=== PATIENT | male | born 1950 | race Caucasian/White ===

== ENCOUNTER 2024-01-07 09:30 | Inpatient (IN) | payer MEDICAID ==
[~2024-01-07] VITALS: Ht 162.6 cm; Wt 106.4 kg
[2024-01-07 10:11] LABS: BASOPHILS % 0.6 % (0.0-2.0); EOSINOPHILS % 2.9 % (0.0-5.0); HEMATOCRIT. 43.9 % (42.0-52.0); HEMOGLOBIN. 14.9 g/dL (14.0-18.0); LYMPHOCYTES % 15.3 % (20.0-50.0); MEAN CORPUSCULAR HEMOGLOBIN 30.5 pg (28.0-32.0); MEAN CORPUSCULAR VOLUME 89.8 fL (80.0-94.0); MEAN PLATELET VOLUME 9.3 fl (7.4-10.4); MONOCYTES % 10.2 % (2.0-8.0); PLATELET 329 x1000/uL (130-400); RED BLOOD CELL COUNT 4.89 mill/uL (4.7-6.1); RED CELL DISTRIBUTION WIDTH 16.3 % (11.6-14.6); WHITE BLOOD COUNT 9.4 x1000/uL (4.5-11.0)
[2024-01-07 10:16] LABS: INR 0.9; PARTIAL THROMBOPLASTIN TIME 25.9 sec (23.4-31.0); PROTHROMBIN TIME 10.5 sec (9.6-11.0)
[2024-01-07 10:26] LABS: ALANINE AMINOTRANSFERASE 26 IU/L (10-49); ALBUMIN 3.7 g/dL (3.2-4.8); ASPARTATE AMINOTRANSFERASE 59 IU/L (<34); BILIRUBIN TOTAL 1.4 mg/dL (0.1-1.0); CALCIUM 8.2 mg/dL (8.7-10.4); CARBON DIOXIDE 24 mEq/L (21-32); CHLORIDE 109 mEq/L (98-107); GLUCOSE 106 mg/dL (70-105); POTASSIUM 3.9 mEq/L (3.5-5.1); PROTEIN TOTAL 6.2 g/dL (6.0-8.3); SODIUM 139 mEq/L (136-145); UREA NITROGEN BLOOD 14 mg/dL (9-23)
[2024-01-07 10:31] LABS: TROPONIN I HIGH SENSITIVITY 114 ng/L (3.0-53)
[2024-01-07 11:29] LABS: LACTIC ACID 2.1 mmol/L (0.4-2.0)
[2024-01-07] MEDS: MORPHINE SULFATE 4 MG/ML INJ (FOR IV/IM USE) IV ONE (12:11)
[2024-01-07] MEDS ORDERED: CLONIDINE 0.1MG TABLET PO PRN (16:00)
[2024-01-07] MEDS ORDERED: ACETAMINOPHEN 325MG TABLET PO PRN ×2 (16:00)
[2024-01-07 19:45] VITALS: BP 139/102; PULSE 95; RESP 25; TEMP 98
[2024-01-07 22:19] LABS: HEMATOCRIT 43.7 % (42.0-52.0); HEMOGLOBIN 14.9 g/dL (14.0-18.0)
[2024-01-07 22:39] LABS: CREATINE KINASE 381 IU/L (46-171)
[2024-01-07 23:03] LABS: TROPONIN I HIGH SENSITIVITY 97 ng/L (3.0-53)
[2024-01-07] MEDS ORDERED: KETOROLAC 15MG/ML VIAL IV PRN (23:15)
[2024-01-07] MEDS: IOHEXOL-350 100 ML BOTTLE ONE (23:51)
[2024-01-08] VITALS (8 sets, daily range): BP systolic 116–152; BP diastolic 74–89; PULSE 70–91; RESP 16–24; TEMP 97.7–98.3
[2024-01-08] MEDS ORDERED: DEXTROSE 50% WATER 50ML SYRINGE IV PRN
[2024-01-08] MEDS: POLYETHYLENE GLYCOL 3350 (17GM) 1 DOSE PACK PO SCH (00:21)
[2024-01-08 03:02] LABS: ALANINE AMINOTRANSFERASE 24 IU/L (10-49); ALBUMIN 3.7 g/dL (3.2-4.8); ASPARTATE AMINOTRANSFERASE 52 IU/L (<34); BILIRUBIN TOTAL 1.4 mg/dL (0.1-1.0); CALCIUM 8.7 mg/dL (8.7-10.4); CARBON DIOXIDE 25 mEq/L (21-32); CHLORIDE 108 mEq/L (98-107); CHOLESTEROL 109 mg/dL (<200); GLUCOSE 70 mg/dL (70-105); HDL CHOLESTEROL 31 mg/dL (>55); LDL CHOLESTEROL 60 mg/dL (5-100); POTASSIUM 4.2 mEq/L (3.5-5.1); PROTEIN TOTAL 6.6 g/dL (6.0-8.3); SODIUM 140 mEq/L (136-145); T4 FREE 1.39 ng/dL (0.89-1.76); THYROID STIMULATING HORMONE 0.52 uIU/mL (0.55-4.78); TRIGLYCERIDE 119 mg/dL (0-150); UREA NITROGEN BLOOD 17 mg/dL (9-23)
[2024-01-08 03:31] LABS: TROPONIN I HIGH SENSITIVITY 98 ng/L (3.0-53)
[2024-01-08 05:11] LABS: *AMPHETAMINES SCREEN URINE NEGATIVE (NEGATIVE); *BARBITURATES SCREEN URINE NEGATIVE (NEGATIVE); *BENZODIAZEPINES SCREEN URINE NEGATIVE (NEGATIVE); *COCAINE SCREEN URINE NEGATIVE (NEGATIVE); CANNABINOID URINE SCREEN NEGATIVE (NEGATIVE); ECSTASY MDMA SCREEN URINE NEGATIVE (NEGATIVE); METHADONE URINE SCREEN Neg (NEGATIVE); OPIATES URINE SCREEN PRESUMPTIVE POSITIVE (NEGATIVE); PHENCYCLIDINE URINE SCREEN NEGATIVE (NEGATIVE)
[2024-01-08 05:57] LABS: CLARITY URINE CLEAR (CLEAR); COLOR URINE DARK YELLOW (YELLOW); GLUCOSE URINE NEGATIVE (NEGATIVE); KETONES URINE NEGATIVE (NEGATIVE); LEUKOCYTE ESTERASE URINE NEGATIVE (NEGATIVE); NITRITE URINE NEGATIVE (NEGATIVE); OCCULT BLOOD URINE NEGATIVE (NEGATIVE); PROTEIN URINE TRACE (NEGATIVE); SPECIFIC GRAVITY URINE 1.064 (1.005-1.030)
[2024-01-08 06:09] LABS: BACTERIA URINE NONE SEEN; RBC URINE 0-2 /hpf (0-2); SQUAMOUS EPITHELIAL CELL URINE NONE SEEN /lpf (RARE/1+); WBC URINE 0-2 /hpf (0-2)
[2024-01-08] MEDS: BLOOD SUGAR DIAGNOSTIC STRIP TEST SCH (06:15)
[2024-01-08] MEDS: INSULIN LISPRO 100 UNITS/ML SUBCUT SCH (06:23)
[2024-01-08 07:04] LABS: CREATINE KINASE 328 IU/L (46-171)
[2024-01-08 07:16] LABS: BASOPHILS % 0.7 % (0.0-2.0); HEMATOCRIT. 42.5 % (42.0-52.0); HEMOGLOBIN. 14.3 g/dL (14.0-18.0); LYMPHOCYTES % 17.2 % (20.0-50.0); MEAN CORPUSCULAR HEMOGLOBIN 30.3 pg (28.0-32.0); MEAN CORPUSCULAR HGB CONC 33.7 g/dL (31.0-37.0); MEAN PLATELET VOLUME 9.6 fl (7.4-10.4); MONOCYTES % 11.7 % (2.0-8.0); NEUTROPHILS % 66.4 % (40.0-76.0); PLATELET 292 x1000/uL (130-400); RED BLOOD CELL COUNT 4.72 mill/uL (4.7-6.1); RED CELL DISTRIBUTION WIDTH 16.9 % (11.6-14.6); WHITE BLOOD COUNT 8.6 x1000/uL (4.5-11.0)
[2024-01-08 08:33] LABS: TROPONIN I HIGH SENSITIVITY 100 ng/L (3.0-53)
[2024-01-08] MEDS: METOPROLOL SUCCINATE 50MG ER TABLET PO SCH (08:49)
[2024-01-08] MEDS: LOSARTAN 100 MG TABLET PO SCH (08:49)
[2024-01-08] MEDS ORDERED: GUAIFENESIN 200MG/10ML SUGAR FREE UDC PO PRN (11:45)
[2024-01-08] MEDS: ATORVASTATIN CALCIUM 40MG TABLET PO SCH (21:09)
[2024-01-09 00:10] VITALS: BP 145/93; PULSE 84; RESP 26; TEMP 98
[2024-01-09 04:00] VITALS: BP 152/90; PULSE 83; RESP 20; TEMP 97.9
[2024-01-09 06:27] LABS: HEMATOCRIT 44.6 % (42.0-52.0); HEMOGLOBIN 14.7 g/dL (14.0-18.0); MEAN CORPUSCULAR HEMOGLOBIN 29.8 pg (28.0-32.0); MEAN CORPUSCULAR HGB CONC 32.9 g/dL (31.0-37.0); MEAN CORPUSCULAR VOLUME 90.6 fL (80.0-94.0); PLATELET 288 x1000/uL (130-400); RED BLOOD CELL COUNT 4.92 mill/uL (4.7-6.1); RED CELL DISTRIBUTION WIDTH 17.2 % (11.6-14.6); WHITE BLOOD COUNT 8.6 x1000/uL (4.5-11.0)
[2024-01-09 06:39] LABS: CALCIUM 8.6 mg/dL (8.7-10.4); CARBON DIOXIDE 27 mEq/L (21-32); CHLORIDE 108 mEq/L (98-107); CREATININE 0.9 mg/dL (0.6-1.3); GLUCOSE 93 mg/dL (70-105); POTASSIUM 4.7 mEq/L (3.5-5.1); SODIUM 140 mEq/L (136-145); UREA NITROGEN BLOOD 16 mg/dL (9-23)
[2024-01-09 06:46] LABS: TROPONIN I HIGH SENSITIVITY 103 ng/L (3.0-53)
[2024-01-09 08:00] VITALS: BP 151/104; PULSE 96; RESP 20; TEMP 97.9
[2024-01-09] MEDS: NA PHOS,M-B/NA PHOS,DI-BA ENEMA 118ML PR NR (09:30)
[2024-01-09] MEDS: LACTULOSE 20G/30ML UDC PO NR (10:10)
[2024-01-09 13:37] VITALS: BP 109/67; PULSE 84; RESP 20; TEMP 98.2
[2024-01-09] MEDS: APIXABAN 5 MG TABLET PO SCH (13:39)
[2024-01-09 15:00] LABS: TROPONIN I HIGH SENSITIVITY 92 ng/L (3.0-53)
[2024-01-09 15:40] VITALS: BP 142/95; PULSE 80; RESP 20; TEMP 97.8
[2024-01-09] MEDS ORDERED: NA PHOS,M-B/NA PHOS,DI-BA ENEMA 118ML PR NR (20:00)
[2024-01-09 20:03] VITALS: BP 129/79; PULSE 80; RESP 24; TEMP 98.6
[2024-01-09] MEDS ORDERED: LACTULOSE 20G/30ML UDC PO SCH (22:00)
[2024-01-10] VITALS: BP 109/91; PULSE 80; RESP 17; TEMP 98.3
[2024-01-10 00:39] LABS: TROPONIN I HIGH SENSITIVITY 108 ng/L (3.0-53)
[2024-01-10 04:00] VITALS: BP 122/91; PULSE 84; RESP 22; TEMP 98.2
[2024-01-10 07:47] VITALS: BP 143/87; PULSE 93; RESP 20
[2024-01-10 08:00] VITALS: BP 139/75; PULSE 80; RESP 23; TEMP 98
[2024-01-10 11:54] VITALS: BP 139/75; PULSE 80; TEMP 98; O2SAT 95
[2024-01-10 12:22] LABS: CALCIUM 8.5 mg/dL (8.7-10.4); CARBON DIOXIDE 23 mEq/L (21-32); CHLORIDE 109 mEq/L (98-107); CREATININE 0.9 mg/dL (0.6-1.3); GLUCOSE 93 mg/dL (70-105); POTASSIUM 4.5 mEq/L (3.5-5.1); SODIUM 139 mEq/L (136-145); UREA NITROGEN BLOOD 13 mg/dL (9-23)
[2024-01-10 12:23] LABS: HEMATOCRIT 44.8 % (42.0-52.0); MEAN CORPUSCULAR HGB CONC 33.4 g/dL (31.0-37.0); MEAN CORPUSCULAR VOLUME 89.6 fL (80.0-94.0); PLATELET 310 x1000/uL (130-400); RED CELL DISTRIBUTION WIDTH 16.7 % (11.6-14.6); WHITE BLOOD COUNT 8.3 x1000/uL (4.5-11.0)
[2024-01-10] MEDS ORDERED: APIX5TAB PO (12:49)
[2024-01-10 13:00] VITALS: BP 129/71; PULSE 85; RESP 21; TEMP 98.5
== END 2024-01-10 18:52 | disposition home or self-care (01) | DRG 384 ==
LOC: ER 09:30 → EDBEDREQ 15:43 → EDBEDREQTM 15:43 → 3WST 20:30
PROVIDERS: ADMIT Preventive Medicine Clinical Informatics; ATTEND Preventive Medicine Clinical Informatics
DX: S30.1XXA Contusion of abdominal wall, initial encounter (principal); I21.A1 Myocardial infarction type 2; I50.42 Chronic combined systolic (congestive) and diastolic (congestive) heart failure; I11.0 Hypertensive heart disease with heart failure; E11.9 Type 2 diabetes mellitus without complications; E78.5 Hyperlipidemia, unspecified; I48.20 Chronic atrial fibrillation, unspecified; K59.00 Constipation, unspecified; E78.00 Pure hypercholesterolemia, unspecified; F17.210 Nicotine dependence, cigarettes, uncomplicated; X58.XXXA Exposure to other specified factors, initial encounter; Z79.82 Long term (current) use of aspirin; Z79.899 Other long term (current) drug therapy; Y93.89 Activity, other specified; Y92.89 Other specified places as the place of occurrence of the external cause; Y99.8 Other external cause status; Z79.84 Long term (current) use of oral hypoglycemic drugs; R09.1 Pleurisy
CPT/HCPCS: 36415; 71045; 74177; 80048; 80053; 80061; 80305; 81003; 82550; 82962; 83036; 83605; 83880; 84439; 84443; 84484; 85014; 85018; 85025; 85027; 86850; 86900; 93005; 93306; 93970; 97116; 97162; 97165; 99285; J1815; J2270; Q9967